=== PATIENT | female | born 1965 | race Caucasian/White ===

== ENCOUNTER → 2019-09-05 14:38 | Outpatient (CLI) | payer OTHER, SELFPAY ==
--- NOTE | 2019-09-05 | DI.MG.S_ITS ---
BILATERAL DIGITAL SCREENING MAMMOGRAM 3D/2D WITH CAD: 09/05/2019 CLINICAL: Routine screening. Family history of breast cancer. Comparison is made to exams dated: 08/23/2018 mammogram, 08/20/2017 mammogram, and 08/18/2016 mammogram - [facility]. The tissue of both breasts is heterogeneously dense. This may lower the sensitivity of mammography. Current study was also evaluated with a Computer Aided Detection (CAD) system. No significant masses, calcifications, or other findings are seen in either breast. There has been no significant interval change. IMPRESSION: NEGATIVE There is no mammographic evidence of malignancy. A 1 year screening mammogram is recommended. This exam was interpreted at Station ID: [id number]. NOTE: For mammograms, a report in lay terms will be sent to the patient. Approximately 15% of breast malignancies will not be visualized mammographically. In the management of a palpable breast mass, a negative mammogram must not discourage biopsy of a clinically suspicious lesion. Electronically Signed By: Cyril araya/berny:09/05/2019 18:27:49 letter sent: Normal Exam ACR BI-RADS Category 1: Negative 3341F
== END ==
PROVIDERS: PCP Internal Medicine; Visit Provider Internal Medicine
DX: Z12.31 Encounter for screening mammogram for malignant neoplasm of breast (principal); Z80.3 Family history of malignant neoplasm of breast
CPT/HCPCS: 77063; 77067

== ENCOUNTER → 2020-03-16 07:13 | Outpatient (CLI) | payer OTHER, SELFPAY ==
--- NOTE | 2020-03-16 07:14 | DI.US.S_ITS ---
PROCEDURE: US PELVIC COMPLETE INDICATIONS: perimenopausal bleeding TECHNIQUE: Real-time scanning was performed of the pelvic organs, with image documentation. Additional endovaginal scanning was necessary due to incomplete visualization of the adnexal and endometrial structures by transabdominal scanning. COMPARISON: None. FINDINGS: Transabdominal scanning: Limited scanning through the kidneys shows no hydronephrosis. No pathologic free abdominal or pelvic fluid. Endovaginal scanning: Uterus: Uterus is normal in size at 4.2 x 4.9 x 7.9 cm. The endometrium is not sharply demarcated, and there is heterogeneity within the central portion of the uterus to the degree that the endometrial lining is not considered fully evaluated. Ovaries: Not seen on the right, 1.2 x 0.9 x 1.7 cm on the left. IMPRESSION: Nonvisualization of the right ovary, likely due to overlying bowel gas. Normal appearing left ovary. The endometrial lining has not been well visualized by ultrasound and for this reason in the setting of perimenopausal bleeding follow-up by pelvic MRI likely is warranted. Alternatively, consider biopsy at this time. A mass lesion involving the endometrium may be present. Dictated by: Jamie Clark M.D. on 03/16/2020 at 9:41 Approved by: Jamie Clark M.D. on 03/16/2020 at 10:06
== END ==
PROVIDERS: PCP Internal Medicine; Referring Provider Internal Medicine; Visit Provider Obstetrics & Gynecology
DX: N93.9 Abnormal uterine and vaginal bleeding, unspecified (principal)
CPT/HCPCS: 76830; 76856

== ENCOUNTER → 2020-04-09 13:57 | Outpatient (CLI) | payer OTHER, SELFPAY ==
[2020-04-09 15:24] LABS: Free T4, Direct Thyroxine 0.79 ng/dL (0.78-2.19)
[2020-04-09 15:38] LABS: Thyroid Stimulating Hormone 2.59 uIU/mL (0.47-4.68)
== END ==
PROVIDERS: PCP Internal Medicine; Referring Provider Obstetrics & Gynecology; Visit Provider Obstetrics & Gynecology
DX: N93.9 Abnormal uterine and vaginal bleeding, unspecified (principal)
CPT/HCPCS: 36415; 83001; 84439; 84443

== ENCOUNTER → 2020-04-12 09:27 | Outpatient (CLI) | payer OTHER, SELFPAY ==
[2020-04-12 09:35] LABS: RBC Urine None Seen (0-5/HPF)
[2020-04-12 10:02] LABS: Appearance Urine UA CLEAR; Bilirubin Urine UA NEGATIVE (NEGATIVE); Color Urine UA YELLOW; Glucose Urine UA NEGATIVE (Negative); Ketones Urine UA NEGATIVE (NEGATIVE); Leukocyte Esterase Urine UA NEGATIVE (NEGATIVE); Nitrite Urine UA NEGATIVE (Negative); Occult Blood Urine UA NEGATIVE (Negative); Protein Urine UA NEGATIVE (Negative); Specific Gravity Urine UA 1.025 (1.000-1.035); Urobilinogen Urine UA 0.2 E.U./dL (0.2)
[2020-04-12 10:11] LABS: Squamous Epithelial Cell Urine 0-1 /HPF (0-5/HPF); WBC Urine 0-1/HPF (0-5/HPF)
[2020-04-12 10:12] LABS: Bacteria Urine Few (2-10); Culture Indicated Urine Cult Not Indicated
== END ==
PROVIDERS: PCP Internal Medicine; Referring Provider Obstetrics & Gynecology; Visit Provider Obstetrics & Gynecology
DX: R39.9 Unspecified symptoms and signs involving the genitourinary system (principal)
CPT/HCPCS: 81001; 87086

== ENCOUNTER → 2020-08-27 08:06 | Outpatient (CLI) | payer OTHER, SELFPAY ==
[2020-08-27 14:28] LABS: Alanine Aminotransferase 16 IU/L (<35); Albumin 4.2 g/dL (3.5-5.0); Albumin Globulin Ratio 1.6 (1.0-2.8); Alkaline Phosphatase 68 U/L (38-126); Aspartate Aminotransferase 26 IU/L (14-36); Bilirubin Total 0.5 mg/dL (0.2-1.3); Blood Urea Nitrogen 20 mg/dL (7-17); Calcium 9.1 mg/dL (8.4-10.2); Carbon Dioxide 27 mmol/L (22-32); Chloride 102 mmol/L (98-107); Cholesterol 138 mg/dL (140-199); Estimated Glomerular Filt Rate > 60.0 mL/min (>60); Globulin 2.7 g/dL (1.7-4.1); Glucose 89 mg/dL (70-100); HDL Cholesterol 59 mg/dL (40-60); HEMOLYSIS < 15 (0-50); LDL Cholesterol Calculated 66 mg/dL (<100); Potassium 4.8 mmol/L (3.4-5.1); Sodium 135 mmol/L (137-145); Total Protein 6.9 g/dL (6.3-8.2); Triglycerides 64 mg/dL (35-150)
== END ==
PROVIDERS: PCP Internal Medicine; Referring Provider Internal Medicine; Visit Provider Internal Medicine
DX: N95.1 Menopausal and female climacteric states (principal); Z13.1 Encounter for screening for diabetes mellitus; Z13.220 Encounter for screening for lipoid disorders
CPT/HCPCS: 36415; 80053; 80061

== ENCOUNTER → 2020-09-20 10:52 | Outpatient (CLI) | payer OTHER, SELFPAY ==
--- NOTE | 2020-09-20 10:57 | DI.RAD.S_ITS ---
PROCEDURE: XR LUMBAR SPINE 2-3V INDICATIONS: low back pain TECHNIQUE: 2 views of the lumbar spine were acquired. COMPARISON: None. FINDINGS: Bones: 5 aft-yid-bevqogm vertebrae are present. There is mild dextroconvex curvature of the lower thoracic/upper lumbar spine and mild levoconvex curvature of the lower lumbar spine. No acute vertebral body compression fractures. No suspicious bony lesions. Minimal degenerative endplate changes are seen at multiple levels. There is mild facet hypertrophy at L3-4 through L5-S1. Soft tissues: Overlying bowel gas pattern is normal. No suspicious soft tissue calcifications. IMPRESSION: No acute osseous abnormality. Mild multilevel degenerative changes. Further evaluation with MRI or CT may be obtained for further evaluation if indicated clinically. Dictated by: Balaji Jacobson M.D. on 09/20/2020 at 15:53 Approved by: Balaji Jacobson M.D. on 09/20/2020 at 15:55
--- NOTE | 2020-09-20 10:57 | DI.RAD.S_ITS ---
PROCEDURE: XR PELVIS 1-2V INDICATIONS: right hip pain TECHNIQUE: Single AP view of the pelvis acquired. COMPARISON: None. FINDINGS: Bones: No acute fractures or dislocations. No suspicious bony lesions. Minimal symmetric degenerative changes are seen in the hips and the pubic symphysis. Soft tissues: Visualized bowel gas pattern is normal. No suspicious soft tissue calcifications. IMPRESSION: No acute osseous abnormality. Minimal symmetric degenerative changes are seen in the hips. If symptoms persist, further evaluation with MRI or CT may be obtained. Dictated by: Balaji Jacobson M.D. on 09/20/2020 at 15:51 Approved by: Balaji Jacobson M.D. on 09/20/2020 at 15:52
--- NOTE | 2020-09-20 10:57 | DI.RAD.S_ITS ---
PROCEDURE: XR CERVICAL SPINE 2V OR 3V INDICATIONS: neck pain TECHNIQUE: 3 views of the cervical spine were acquired. COMPARISON: None. FINDINGS: Bones: No acute fractures or dislocations to the C7 level. There is mild reversal of the normal cervical lordosis that may be related to patient positioning. The lateral masses of C1 appear intact on the odontoid view. No suspicious bony lesions. Multilevel disc space narrowing, degenerative endplate changes, and uncovertebral joint and facet hypertrophy are seen that are worst at the C5-6 level. Soft tissues: No prevertebral soft tissue swelling. IMPRESSION: No acute osseous abnormality. Multilevel spondylosis is worst at the C5-6 level. Further evaluation may be obtained with cervical spine MRI if indicated clinically. Dictated by: Balaji Jacobson M.D. on 09/20/2020 at 15:49 Approved by: Balaji Jacobson M.D. on 09/20/2020 at 15:50
--- NOTE | 2020-09-20 10:57 | DI.RAD.S_ITS ---
PROCEDURE: XR THORACIC SPINE 3V INDICATIONS: thoracic back pain TECHNIQUE: 2 views of the thoracic spine were acquired. COMPARISON: None. FINDINGS: Bones: No acute fractures or dislocations. No suspicious bony lesions. Twelve pairs of ribs are noted, and appear intact where visualized. Mild focal degenerative changes are seen at the T11-12 level. Soft tissues: No paravertebral stripe thickening. IMPRESSION: No acute osseous abnormality. If the symptoms persist with conservative management, consider cross sectional imaging such as CT or MRI for further assessment. Dictated by: Balaji Jacobson M.D. on 09/20/2020 at 15:52 Approved by: Balaji Jacobson M.D. on 09/20/2020 at 15:53
--- NOTE | 2020-09-20 11:15 | DI.MG.S_ITS ---
BILATERAL DIGITAL SCREENING MAMMOGRAM 3D/2D WITH CAD: 09/20/2020 CLINICAL: Routine screening. Family history of breast cancer. Comparison is made to exams dated: 09/05/2019 mammogram - [facility], 08/23/2018 mammogram, 08/20/2017 mammogram, and 08/18/2016 mammogram - [facility] [place]. The tissue of both breasts is heterogeneously dense. This may lower the sensitivity of mammography. Current study was also evaluated with a Computer Aided Detection (CAD) system. No significant masses, calcifications, or other findings are seen in either breast. There has been no significant interval change. IMPRESSION: NEGATIVE There is no mammographic evidence of malignancy. A 1 year screening mammogram is recommended. This exam was interpreted at Station ID: [id number]. NOTE: For mammograms, a report in lay terms will be sent to the patient. Approximately 15% of breast malignancies will not be visualized mammographically. In the management of a palpable breast mass, a negative mammogram must not discourage biopsy of a clinically suspicious lesion. Electronically Signed By: Meliton guadalupe/berny:09/20/2020 17:27:56 letter sent: Normal Exam ACR BI-RADS Category 1: Negative 3341F
[2020-09-20 12:49] LABS: Add Manual Diff / Slide Review NO; Basophils Absolute Auto 0 /uL (0-100); Eosinophils Absolute Auto 100 /uL (0-450); Eosinophils Percent Auto 1.7 % (2-4); Hematocrit 38.5 % (36-46); Hemoglobin 12.9 g/dL (12.0-16.0); Lymphocytes Absolute Auto 1300 /uL (1100-4500); Lymphocytes Percent Auto 27.4 % (25-40); Mean Corpuscular HGB Conc 33.5 % (30-36); Mean Corpuscular Hemoglobin 31.5 PG (26-34); Mean Corpuscular Volume 94.1 fL (80-100); Monocytes Absolute Auto 500 /uL (0-900); Monocytes Percent Auto 10.2 % (3-14); Neutrophils Absolute Auto 2800 /uL (1500-7000); Neutrophils Percent Auto 59.7 % (50-75); Platelet Count 229 X10^3/uL (150-400); Red Blood Cell Count 4.09 X10^6/uL (4.0-5.2); Red Cell Distribution Width 12.4 % (11.6-14.8); White Blood Cell Count 4.7 X10^3/uL (4.5-11.0)
[2020-09-20 13:02] LABS: C-Reactive Protein Quant < 0.5 mg/dL (<1.0)
[2020-09-20 13:37] LABS: TSH w/ Reflex to FT4 2.85 uIU/mL (0.47-4.68)
[2020-09-20 19:05] LABS: Erythrocyte Sedimentation Rate 9 MM/HR (0-20)
== END ==
PROVIDERS: PCP Internal Medicine; Referring Provider Internal Medicine; Visit Provider Internal Medicine
DX: Z12.31 Encounter for screening mammogram for malignant neoplasm of breast (principal); Z80.3 Family history of malignant neoplasm of breast; M54.2 Cervicalgia; M47.812 Spondylosis without myelopathy or radiculopathy, cervical region; M25.551 Pain in right hip; M54.6 Pain in thoracic spine; M47.814 Spondylosis without myelopathy or radiculopathy, thoracic region; M54.5 Low back pain; M47.816 Spondylosis without myelopathy or radiculopathy, lumbar region; F41.1 Generalized anxiety disorder; R53.83 Other fatigue; M25.50 Pain in unspecified joint
CPT/HCPCS: 36415; 72040; 72072; 72110; 72170; 77063; 77067; 84443; 85025; 85651; 86140

== ENCOUNTER → 2021-09-12 09:44 | Outpatient (CLI) | payer OTHER, SELFPAY ==
--- NOTE | 2021-09-12 09:45 | DI.RAD.S_ITS ---
PROCEDURE: XR CERVICAL SPINE 4V OR 5V INDICATIONS: back pain/neck pain/lbp TECHNIQUE: 4 views of the cervical spine were acquired. COMPARISON: [facility], , XR CERVICAL SPINE 2V OR 3V, 09/20/2020, 11:07. FINDINGS: Bones: No fractures or dislocations to the T1 level. No suspicious bony lesions. There are degenerative changes at C5-6 and C6-7 with disc space narrowing and osteophytes. There is normal range of motion between flexion and extension, with preserved normal bony alignment. Soft tissues: Prevertebral soft tissues are normal in thickness. IMPRESSION: 1. Full range of motion with flexion and extension with no instability. 2. Moderate to severe degenerative disc disease at C5-6 and C6-7. Dictated by: Dave Cobb M.D. on 09/12/2021 at 10:21 Approved by: Dave Cobb M.D. on 09/12/2021 at 10:24
--- NOTE | 2021-09-12 09:45 | DI.RAD.S_ITS ---
PROCEDURE: XR LUMBAR SPINE MIN 4V INDICATIONS: back pain/neck pain/lbp TECHNIQUE: 5 views of the lumbar spine acquired, including flexion and extension views. COMPARISON: [facility], , XR LUMBAR SPINE 2-3V, 09/20/2020, 11:07. FINDINGS: Bones: 5 nonrib-bearing vertebrae are present. There is mild grade 1 retrolisthesis of L1 on L2 and L2 on L3 which is stable throughout limited range of motion. Will disc space narrowing and endplate osteophyte formation. Facet hypertrophy throughout the mid and lower lumbar spine. No vertebral body compression fractures. No suspicious bony lesions. Soft tissues: Overlying bowel gas pattern is normal. No suspicious soft tissue calcifications. IMPRESSION: 1. Multilevel degenerative disc and facet disease. 2. No instability throughout limited range of motion. Dictated by: Moody Medina M.D. on 09/12/2021 at 11:11 Approved by: Moody Medina M.D. on 09/12/2021 at 13:50
== END ==
PROVIDERS: PCP Internal Medicine; Referring Provider Internal Medicine; Visit Provider Internal Medicine
DX: M50.322 Other cervical disc degeneration at C5-C6 level (principal); M51.36 Other intervertebral disc degeneration, lumbar region; M54.9 Dorsalgia, unspecified; M54.50 Low back pain, unspecified
CPT/HCPCS: 72050; 72110

== ENCOUNTER → 2021-09-26 11:17 | Outpatient (CLI) | payer OTHER, SELFPAY ==
--- NOTE | 2021-09-26 | DI.MG.S_ITS ---
BILATERAL DIGITAL SCREENING MAMMOGRAM 3D/2D WITH CAD: 09/26/2021 CLINICAL: Routine screening. Family history of breast cancer. Comparison is made to exams dated: 09/20/2020 mammogram, 09/05/2019 mammogram - [facility], and 08/23/2018 mammogram - [facility]. The tissue of both breasts is heterogeneously dense. This may lower the sensitivity of mammography. Current study was also evaluated with a Computer Aided Detection (CAD) system. No significant masses, calcifications, or other findings are seen in either breast. There has been no significant interval change. IMPRESSION: NEGATIVE There is no mammographic evidence of malignancy. A 1 year screening mammogram is recommended. This exam was interpreted at Station ID: [id number]. NOTE: For mammograms, a report in lay terms will be sent to the patient. Approximately 15% of breast malignancies will not be visualized mammographically. In the management of a palpable breast mass, a negative mammogram must not discourage biopsy of a clinically suspicious lesion. Electronically Signed By: Cyril araya/berny:09/26/2021 12:02:55 letter sent: Normal Exam ACR BI-RADS Category 1: Negative 3341F
== END ==
PROVIDERS: PCP Internal Medicine; Referring Provider Internal Medicine; Visit Provider Internal Medicine
DX: Z12.31 Encounter for screening mammogram for malignant neoplasm of breast (principal); Z80.3 Family history of malignant neoplasm of breast
CPT/HCPCS: 77063; 77067

== ENCOUNTER → 2022-01-02 07:38 | Outpatient (CLI) | payer OTHER, SELFPAY ==
[2022-01-02 09:39] LABS: Urine N gonorrhoeae NOT DETECTED
[2022-01-02 09:49] LABS: Urine Chlamydia NOT DETECTED
[2022-01-02 16:51] LABS: Hepatitis B Surface Antigen NEGATIVE s/c (NEGATIVE)
[2022-01-02 17:09] LABS: HIV 1 & 2 Ab/Ag 4th Gen Combo NEGATIVE (NEGATIVE); Hep C Virus Ab w/Reflex Quant NEGATIVE s/c (NEGATIVE)
[2022-01-03 04:41] LABS: RPR Screen Non Reactive (Non Reactive)
== END ==
PROVIDERS: PCP Internal Medicine; Referring Provider Obstetrics & Gynecology; Visit Provider Obstetrics & Gynecology
DX: Z00.00 Encounter for general adult medical examination without abnormal findings (principal)
CPT/HCPCS: 36415; 86592; 86803; 87340; 87389; 87491; 87591

== ENCOUNTER → 2022-08-18 15:05 | Outpatient (CLI) | payer OTHER, SELFPAY ==
[2022-08-18 17:06] LABS: Alanine Aminotransferase 17 IU/L (<35); Albumin 4.3 g/dL (3.5-5.0); Albumin Globulin Ratio 1.3 (1.0-2.8); Alkaline Phosphatase 72 U/L (38-126); Aspartate Aminotransferase 26 IU/L (14-36); BUN Creatinine Ratio 18.6 (6-22); Bilirubin Total 0.4 mg/dL (0.2-1.3); Blood Urea Nitrogen 11 mg/dL (7-17); Calcium 8.7 mg/dL (8.4-10.2); Carbon Dioxide 26 mmol/L (22-32); Chloride 105 mmol/L (98-107); Estimated Glomerular Filt Rate > 60 mL/min (>60); Globulin 3.3 g/dL (1.7-4.1); Glucose 80 mg/dL (70-100); HEMOLYSIS 15 (0-50); Potassium 3.9 mmol/L (3.4-5.1); Sodium 140 mmol/L (137-145); Total Protein 7.6 g/dL (6.3-8.2)
[2022-08-18 17:46] LABS: TSH w/ Reflex to FT4 2.33 uIU/mL (0.47-4.68)
== END ==
PROVIDERS: PCP Internal Medicine; Referring Provider Internal Medicine; Visit Provider Internal Medicine
DX: R03.0 Elevated blood-pressure reading, without diagnosis of hypertension (principal)
CPT/HCPCS: 36415; 80053; 84443

== ENCOUNTER → 2022-10-13 08:01 | Outpatient (CLI) | payer OTHER, SELFPAY ==
--- NOTE | 2022-10-13 | DI.MG.S_ITS ---
BILATERAL DIGITAL SCREENING MAMMOGRAM 3D/2D WITH CAD: 10/13/2022 CLINICAL: Routine screening. Family history of breast cancer. Comparison is made to exams dated: 09/26/2021 mammogram, 09/20/2020 mammogram, 09/05/2019 mammogram - [facility], and 08/23/2018 mammogram - [facility]. Both breasts are heterogeneously dense, which may obscure small masses (category c / 51-75% glandular tissue). Current study was also evaluated with a Computer Aided Detection (CAD) system. No significant masses, calcifications, or other findings are seen in either breast. There has been no significant interval change. IMPRESSION: NEGATIVE There is no mammographic evidence of malignancy. A 1 year screening mammogram is recommended. Based on the Tyrer Cuzick model (a risk assessment model) the patient's lifetime risk is 12.0% and her 10 year risk is 4.1%. According to the ACR, ACS, and NCCN guidelines, an annual breast MRI exam along with mammogram is recommended if the patient's lifetime risk is 20% or greater. This exam was interpreted at Station ID: [id number]. NOTE: For mammograms, a report in lay terms will be sent to the patient. Approximately 15% of breast malignancies will not be visualized mammographically. In the management of a palpable breast mass, a negative mammogram must not discourage biopsy of a clinically suspicious lesion. Electronically Signed By: Meliton guadalupe/berny:10/13/2022 15:43:46 letter sent: Normal Exam ACR BI-RADS Category 1: Negative 3341F
== END ==
PROVIDERS: PCP Internal Medicine; Referring Provider Internal Medicine; Visit Provider Internal Medicine
DX: Z12.31 Encounter for screening mammogram for malignant neoplasm of breast (principal); Z80.3 Family history of malignant neoplasm of breast
CPT/HCPCS: 77063; 77067

== ENCOUNTER → 2023-02-19 12:15 | Outpatient (CLI) | payer OTHER, SELFPAY ==
--- NOTE | 2023-02-19 12:17 | DI.US.S_ITS ---
PROCEDURE: US PELVIC COMPLETE INDICATIONS: POST MENOPAUSAL BLEEDING TECHNIQUE: Real-time scanning was performed of the pelvic organs, with image documentation. Additional endovaginal scanning was necessary due to incomplete visualization of the adnexal and endometrial structures by transabdominal scanning. COMPARISON: [facility], , US PELVIC COMPLETE, 03/16/2020, 7:26. FINDINGS: Uterus: Uterus is anteverted and normal in size at 9.2 x 3.4 x 4.9 cm. The myometrium is homogeneous. The endometrium measures 9.8 mm combined thickness. Multiple nabothian cysts. Ovaries: The right ovary is suboptimally visualized and measures 3.0 x 1.2 x 2.8 cm, with a calculated ovarian volume of 5.2 cc. The left ovary is not visualized. There are less than 12 follicles in right ovary. No adnexal masses are seen. Other: No pathologic free abdominal or pelvic fluid. IMPRESSION: 1. Endometrium is thickened for a postmenopausal woman. In this patient with postmenopausal bleeding, recommend endometrial sampling to rule out endometrial cancer. 2. Right ovary is suboptimally visualized. Left ovary is not visualized. We strive to produce accurate, complete, and clear reports of imaging services. To assist us in improving patient care, this report was composed using standard report templates and voice recognition software. Therefore, it may contain abnormal punctuation, insertions and/or omissions. Occasional wrong-word or sound-alike substitutions may occur. Though we review the report and make efforts to correct it, we do recommend that the report be read carefully in proper context to recognize any text inaccuracies. Dictated by: Donovan Bazan M.D. on 02/19/2023 at 14:37 Approved by: Donovan Bazan M.D. on 02/19/2023 at 14:55
== END ==
PROVIDERS: PCP Internal Medicine; Referring Provider Obstetrics & Gynecology; Visit Provider Obstetrics & Gynecology
DX: N95.0 Postmenopausal bleeding (principal); R93.89 Abnormal findings on diagnostic imaging of other specified body structures
CPT/HCPCS: 76830; 76856

== ENCOUNTER 2023-04-06 08:00 | Day surgery (SDC) | payer OTHER, SELFPAY ==
[2023-03-27 07:47] VITALS: BMI 26.5
[2023-04-06] VITALS (8 sets, daily range): BP systolic 109–1222; BP diastolic 61–89; PULSE 54–75; RESP 12–16; TEMP 36.3–36.8; O2SAT 94–100; BMI 26.7
--- NOTE | 2023-04-06 | PATH_ITS ---
[facility] Accession Number: [id number] No. of containers..01 Tissue . 01 Material submitted: . endometrium - ENDOMETRIAL CURETTINGS . 01 Diagnosis: Endometrium, Curettings: Benign, predominantly inactive endometrium with breakdown changes. Fragments of benign ecto/endocervical tissue also present. Negative for hyperplasia, atypia, and malignancy. MRV 04/18/2023 1547 Local . 01 Electronically signed: . Sabrina Bashir MD, Pathologist NPI- [id number] . 01 Gross description: . ENDOMETRIAL CURETTINGS: Received in formalin are minute fragments of mucoid and hemorrhagic material measuring 2.5 x 1.0 x 0.3 cm in aggregate. Submitted in toto in 1 cassette. /AAY 04/09/2023 2226 Local . 01 Pathologist provided ICD-10: N95.0, R93.89 . 01 CPT . 135237 Specimen Comment: A courtesy copy of this report has been sent to [phone] Performed at: 01 [facility] [address] [place] [address], [place], [place] [id number] MD Dameon Mahoney MD Phone: [phone]
[2023-04-06] MEDS: LACTATED RINGERS 1,000 ML 42 ML IV (08:41)
--- NOTE | 2023-04-06 08:48 | PM.PREOP ---
Pre-operative Note COVID-19 COVID-19 status: Not tested Criteria for continued procedure: Non-surgical alternatives not available or appropriate per current SOC Interval Note History & Physical reviewed/Exam performed by Physician: Yes Changes to H&P: No
--- NOTE | 2023-04-06 09:10 | SUR.OPER ---
Lithotomy on padded OR bed, head on pillow, arms secured on padded arm boards at <90 degrees abduction. Legs secured in padded yellow fins stirrups.
--- NOTE | 2023-04-06 09:39 | P.OP_ITS ---
Operative Date/Time/Diagnoses Date of procedure: 04/06/23 Time of procedure: 08:45 Pre-op diagnosis: Postmenopausal bleeding Endometrial thickening by ultrasound Post-op diagnosis: same Procedure & Clinicians Procedure: Procedures Operation Date: 04/06/23 09:15 Actual Procedure Side Surgeon p Hysteroscopy w/ Poss. BX's, D&C, Novasure Endometrial Ablation Not Applicable Honorio Dodge MD Indications: Tanya has been followed re: persistent PMB on Climara Pro.? The episodes of bleeding are sporadic, light, and not associated with late application of a new Climara patch.? The patient had hysteroscopy with D&C performed in 2016 for postmenopausal bleeding and endometrial biopsy again in 2019 which was negative.? The biopsy was a very painful experience with the patient and she declines repeat biopsy in office.? Patient had a follow-up ultrasound performed 02/19/2023 which showed: FINDINGS:? ?? Uterus:? Uterus is anteverted and normal in size at 9.2 x 3.4 x 4.9 cm. The myometrium is homogeneous. ? The endometrium measures 9.8 mm combined thickness.? Multiple nabothian cysts. ? Ovaries:? The right ovary is suboptimally visualized and measures 3.0 x 1.2 x 2.8 cm, with a calculated ovarian volume of 5.2 cc. The left ovary is not visualized.? There are less than 12 follicles in right ovary.? No adnexal masses are seen. ? Other:? No pathologic free abdominal or pelvic fluid.? ? IMPRESSION:? ? 1. Endometrium is thickened for a postmenopausal woman.? In this patient with postmenopausal bleeding, recommend endometrial sampling to rule out endometrial cancer. ? 2. Right ovary is suboptimally visualized.? Left ovary is not visualized. The option of discontinuation of the Climara Pro is not an acceptable option to the patient due to the benefit she receives from its use.? She is also unwilling to go through another in office endometrial biopsy due to her experience with the biopsy in 2019.? After discussion regarding all options, the patient opts for hysteroscopy with D&C and endometrial ablation and she presents today for her scheduled surgery. Surgeon: Honorio Dodge Anesthesia Type: General Operative Notes Findings: Normal endometrial cavity with no focal lesions. Endometrium appears atrophic. Both tubal ostia were visualized. Closure Type: not applicable Specimen(s): endometrial curettings Estimated blood loss (mL): 5 Blood products transfused: none Procedure in detail: With the patient under general LMA in the modified dorsal lithotomy position, the perineum, vagina, and lower abdomen were prepped and draped in the usual fashion for hysteroscopy with endometrial ablation. A pre-surgical safety time- out was then taken in accordance with [facility] OR protocols. A bivalve speculum was inserted in the vagina and the cervix visualized. The anterior lip of the cervix was grasped with a single-tooth tenaculum and the endocervical canal was then dilated to 6 mm diameter. Hysteroscope was placed through the endocervical canal into the endometrial cavity and the cavity was visualized. There were no localized abnormalities within the endometrial cavity and the endometrium itself was unremarkable. Both tubal ostia were visualized. The hysteroscope was then withdrawn and a curettage was performed with pathologic specimen submitted for the endometrial curettings. The uterine cavity was then sounded with the NovaSure device and found to be 5.5 cm in depth. The NovaSure device was then inserted through the endocervical canal into the endometrial cavity and the width of the cavity determined to be 2.5 cm. Cavity integrity test demonstrated the cavity to be intact and ablation was initiated. Ablation time was 41 seconds with power utilized 76 w. The NovaSure device was then removed from the endometrial cavity and hysteroscopy demonstrated excellent ablation effect. The tenaculum was then removed from the anterior lip of the cervix and no bleeding was encountered. The speculum was then removed from the vagina and the patient awakened from anesthesia. She was then transferred to the PACU for a period of observation and recovery having tolerated the procedure well. Complications: none Post-operative Condition: stable Disposition: PACU Plan for aftercare: Routine post-op care.
[2023-04-06] MEDS: OXYCODONE IR 5 MG TABLET PO (10:09)
== END 2023-04-06 10:40 | disposition home or self-care (01) ==
PROVIDERS: PCP Internal Medicine; Referring Provider Obstetrics & Gynecology; Visit Provider Obstetrics & Gynecology
PROC: 0U5B8ZZ Destruction of Endometrium, Via Natural or Artificial Opening Endoscopic (ICD-10-PCS; CPT 58563; principal; 2023-04-06 09:15)
DX: N95.0 Postmenopausal bleeding (principal); N88.8 Other specified noninflammatory disorders of cervix uteri
CPT/HCPCS: 58563; J1100; J2250; J2405; J2704; J3010

== ENCOUNTER → 2023-07-12 10:04 | Outpatient (CLI) | payer OTHER, SELFPAY ==
[2023-07-13 15:40] LABS: Candida species Negative (Negative); Gardnerella vaginalis Negative (Negative); Trichomoas vaginalis Negative (Negative)
== END ==
PROVIDERS: PCP Internal Medicine; Visit Provider Physician Assistant Medical
DX: N89.8 Other specified noninflammatory disorders of vagina (principal)
CPT/HCPCS: 87480; 87510; 87660

== ENCOUNTER → 2023-11-26 07:49 | Outpatient (CLI) | payer OTHER, SELFPAY ==
--- NOTE | 2023-11-26 | DI.MG.S_ITS ---
BILATERAL DIGITAL SCREENING MAMMOGRAM 3D/2D WITH CAD: 11/26/2023 CLINICAL: Routine screening. Family history of breast cancer. Comparison is made to exams dated: 10/13/2022 mammogram, 09/26/2021 mammogram, and 09/20/2020 mammogram - [facility]. Both breasts are heterogeneously dense, which may obscure small masses (category c / 51-75% glandular tissue). Current study was also evaluated with a Computer Aided Detection (CAD) system. There are benign calcifications in both breasts. No significant masses, calcifications, or other findings are seen in either breast. There has been no significant interval change. IMPRESSION: BENIGN There is no mammographic evidence of malignancy. A 1 year screening mammogram is recommended. Based on the Tyrer Cuzick model (a risk assessment model) the patient's lifetime risk is 12.0% and her 10 year risk is 4.6%. According to the ACR, ACS, and NCCN guidelines, an annual breast MRI exam along with mammogram is recommended if the patient's lifetime risk is 20% or greater. This exam was interpreted at Station ID: [id number]. NOTE: For mammograms, a report in lay terms will be sent to the patient. Approximately 15% of breast malignancies will not be visualized mammographically. In the management of a palpable breast mass, a negative mammogram must not discourage biopsy of a clinically suspicious lesion. Electronically Signed By: Magalis jordan/berny:11/26/2023 12:51:13 letter sent: Normal Exam ACR BI-RADS Category 2: Benign Finding(s) 3342F
== END ==
LOC: MAMMO 07:50
PROVIDERS: PCP Internal Medicine; Referring Provider Internal Medicine; Visit Provider Internal Medicine
DX: Z12.31 Encounter for screening mammogram for malignant neoplasm of breast (principal); Z80.3 Family history of malignant neoplasm of breast; R92.333 Mammographic heterogeneous density, bilateral breasts
CPT/HCPCS: 77063; 77067

== ENCOUNTER → 2024-05-19 15:22 | Outpatient (CLI) | payer OTHER, SELFPAY ==
[2024-05-19 17:23] LABS: Add Manual Diff / Slide Review NO; Basophils Absolute Auto 100 /uL (0-100); Basophils Percent Auto 0.7 % (0-2); Eosinophils Absolute Auto 100 /uL (0-450); Eosinophils Percent Auto 1.2 % (2-4); Hematocrit 37.8 % (36-46); Hemoglobin 12.6 g/dL (12.0-16.0); Lymphocytes Absolute Auto 1700 /uL (1100-4500); Mean Corpuscular HGB Conc 33.4 % (30-36); Mean Corpuscular Hemoglobin 31.3 PG (26-34); Mean Corpuscular Volume 93.9 fL (80-100); Monocytes Absolute Auto 500 /uL (0-900); Neutrophils Absolute Auto 5100 /uL (1500-7000); Neutrophils Percent Auto 68.1 % (50-75); Platelet Count 284 X10^3/uL (150-400); Red Blood Cell Count 4.03 X10^6/uL (4.0-5.2); Red Cell Distribution Width 12.8 % (11.6-14.8); White Blood Cell Count 7.6 X10^3/uL (4.5-11.0)
[2024-05-19 17:45] LABS: Erythrocyte Sedimentation Rate 22 MM/HR (0-20)
[2024-05-19 17:59] LABS: Alanine Aminotransferase 17 IU/L (<35); Albumin 4.1 g/dL (3.5-5.0); Albumin Globulin Ratio 1.4 (1.0-2.8); Alkaline Phosphatase 64 U/L (38-126); Aspartate Aminotransferase 29 IU/L (14-36); BUN Creatinine Ratio 18.3 (6-22); Bilirubin Total 0.4 mg/dL (0.2-1.3); Blood Urea Nitrogen 13 mg/dL (7-17); Calcium 9.2 mg/dL (8.4-10.2); Carbon Dioxide 28 mmol/L (22-32); Chloride 102 mmol/L (98-107); Estimated Glomerular Filt Rate > 60 mL/min (>60); Globulin 2.9 g/dL (1.7-4.1); Glucose 88 mg/dL (70-100); HEMOLYSIS 19 (0-50); Potassium 4.3 mmol/L (3.4-5.1); Sodium 135 mmol/L (137-145)
[2024-05-19 18:30] LABS: Thyroid Stimulating Hormone 3.12 uIU/mL (0.47-4.68)
== END ==
PROVIDERS: PCP Internal Medicine; Referring Provider Physician Assistant Medical; Visit Provider Physician Assistant Medical
DX: L65.9 Nonscarring hair loss, unspecified (principal)
CPT/HCPCS: 36415; 80053; 84443; 85025; 85651

== ENCOUNTER → 2024-05-27 09:13 | Outpatient (CLI) | payer OTHER, SELFPAY ==
[2024-05-27 12:35] LABS: Ferritin 51 ng/mL (11-264)
== END ==
LOC: LAB 09:15
PROVIDERS: PCP Internal Medicine; Referring Provider Physician Assistant Medical; Visit Provider Physician Assistant Medical
DX: L85.9 Epidermal thickening, unspecified (principal)
CPT/HCPCS: 82728

== ENCOUNTER → 2024-07-11 11:28 | Outpatient (CLI) | payer OTHER, SELFPAY ==
[2024-07-11 12:39] LABS: Ferritin 80 ng/mL (11-264)
[2024-07-11 12:59] LABS: Erythrocyte Sedimentation Rate 20 MM/HR (0-20)
== END ==
PROVIDERS: PCP Internal Medicine; Referring Provider Physician Assistant Medical; Visit Provider Physician Assistant Medical
DX: L65.9 Nonscarring hair loss, unspecified (principal)
CPT/HCPCS: 36415; 82728; 85651

== ENCOUNTER → 2024-12-08 14:52 | Outpatient (CLI) | payer OTHER, SELFPAY ==
--- NOTE | 2024-12-08 14:53 | DI.MG.S_ITS ---
MM screening mammo BI: 12/08/2024. BI-RADS: 0 CLINICAL: 59-year old female for bilateral screening mammogram. Tyrer-Cuzick lifetime risk of 16.0%. No personal or first-degree family history of breast cancer. Current reported family history of breast cancer: maternal grandmother and paternal aunt. PRIOR EXAMS 11/26/2023, 10/13/2022, 09/26/2021, 09/20/2020, 09/05/2019. MAMMOGRAPHY TECHNIQUE: 2D and 3D (tomosynthesis) digital mammographic views obtained, with additional images as needed for full coverage. Current study was also evaluated with a Computer Aided Detection (CAD) system. DENSITY C. The breasts are heterogeneously dense, which may obscure small masses. MAMMOGRAPHY FINDINGS Right: Lower at 6:00, Middle depth: Architectural distortion needing additional imaging evaluation. Left: No suspicious mass, asymmetry, microcalcification, or other abnormality seen. IMPRESSION: Right (Arch Distortion): Lower at 6:00, Middle depth * Incomplete - architectural distortion needing additional imaging evaluation. Left * No evidence of malignancy. RECOMMENDATIONS Right: Lower at 6:00, Middle depth * Further evaluation with diagnostic mammography and diagnostic ultrasound. Ultrasound to be performed only if needed. OVERALL ASSESSMENT CATEGORY BI-RADS-0: Incomplete - Need Additional Imaging Evaluation. ELECTRONICALLY SIGNED: Cyril Medrano M.D. on 12/08/2024 at 08:00:38 PM PT Interpreting Station ID: [id number]
== END ==
PROVIDERS: PCP Internal Medicine; Referring Provider Internal Medicine; Visit Provider Internal Medicine
DX: Z12.31 Encounter for screening mammogram for malignant neoplasm of breast (principal); Z80.3 Family history of malignant neoplasm of breast; R92.333 Mammographic heterogeneous density, bilateral breasts
CPT/HCPCS: 77063; 77067

== ENCOUNTER → 2025-01-01 09:25 | Outpatient (CLI) | payer OTHER, SELFPAY ==
--- NOTE | 2025-01-01 09:26 | DI.MG.S_ITS ---
US breast RT limited, MM diagnostic mammo unilat RT: 01/01/2025 BI-RADS: 4 CLINICAL: 59-year old female for right diagnostic mammogram and right diagnostic breast ultrasound that is a recall from screening on 12/08/2024. Tyrer-Cuzick lifetime risk of 16.0%. No personal or first-degree family history of breast cancer. Current reported family history of breast cancer: maternal grandmother and paternal aunt. PRIOR EXAMS Mammogram(s): 12/08/2024. Five Other Exams on 11/26/2023, 10/13/2022, 09/26/2021, 09/20/2020, 09/05/2019. MAMMOGRAPHY TECHNIQUE: 2D and 3D (tomosynthesis) digital mammographic views obtained, with additional images as needed for full coverage. Current study was also evaluated with a Computer Aided Detection (CAD) system. ULTRASOUND TECHNIQUE Real-time lara scale and color doppler imaging of the area of clinical interest was performed with image documentation. DENSITY Right: C. The breasts are heterogeneously dense, which may obscure small masses. MAMMOGRAPHY FINDINGS Right: Lower at 6:00: There is an area of architectural distortion present. ULTRASOUND FINDINGS Right: Lower Outer at 7:00, 6 cm from nipple, measuring 0.8 x 0.9 x 0.5 cm: There is an area of architectural distortion showing acoustic shadowing with posterior acoustic shadowing. No associated axillary adenopathy. IMPRESSION: Right (Arch Distortion): Lower at 6:00 * Suspicious findings with likelihood of malignancy. RECOMMENDATIONS Right: Lower at 6:00, Middle depth * Stereotactic-guided biopsy for further evaluation (Finding is better visualized mammographically and therefore stereotactic guided biopsy is recommended). COMMENTS: The above findings and recommendations were discussed with the patient by Dr. Colón over the phone at the time of imaging completion. OVERALL ASSESSMENT CATEGORY BI-RADS-4: Suspicious. ELECTRONICALLY SIGNED: Stella Colón M.D. on 01/01/2025 at 11:22:50 AM PT Interpreting Station ID: [id number]
== END ==
PROVIDERS: PCP Internal Medicine; Referring Provider Internal Medicine; Visit Provider Internal Medicine
DX: R92.8 Other abnormal and inconclusive findings on diagnostic imaging of breast (principal); R92.333 Mammographic heterogeneous density, bilateral breasts; Z80.3 Family history of malignant neoplasm of breast
CPT/HCPCS: 76642; 77065; G0279